=== PATIENT | female | born 1955 | race Caucasian/White ===

== ENCOUNTER → 2016-12-31 | Day surgery (SDC) | payer MEDICARE, MEDICAID ==
[~2016-12-31] MED LIST: ACCUMIS XX; ACCUTES19; ALBUAER3 INH; AMLO5 PO; ASAC800T PO; ASPI1TAB69 PO; ATOR40TA16 PO; BLOOD GLUCOSE T1 TES; BROMSYP PO; BUPR1TAB29 PO; DICY10CA12 PO; EFFE150C PO; ERGO1CAP30 PO; FLUT50SP EACH NARE; FLUTI220I INH; FURO20TA PO; GABA300C5 PO; GLUCOMETER XX; GLUCTES12; HUMALOG SQ; INSULINSYR2 XX; IPRA0.03 EACH NARE; LACTATED RINGER'S 1,000 ML BAG IV ONE; LANCETS1 MI1; LEVEMIR SQ; LISI40TA PO; MAGN400C PO; MAGN400T2 PO; METF1000 PO; MOBI15TA PO; PROPOFOL 100 MG/10 ML INJ IV ONE; PROT40TA PO; RANI300C PO; TOPA100T11 PO; TOPA50TA7 PO; Z.0.LANCETS XX
--- NOTE | 2016-12-31 15:29 | GIPROC ---
[facility] [address] [facility], [address] EGD PROCEDURE REPORT EXAM DATE: 12/31/2016 PATIENT NAME: Marivel Lion MR #: [id number] BIRTHDATE: 1955 ATTENDING: Khari Ni MD ORDER #: [id number] CREW SCHEDULER: Anna Woodard RN STATUS: outpatient INDICATIONS: The patient is a 61 yr old female here for an EGD due to dysphagia PROCEDURE PERFORMED: EGD w/ biopsy MEDICATIONS: None and Per Anesthesia. TOPICAL ANESTHETIC: CONSENT: The patient understands the risks and benefits of the procedure and understands that these risks include, but are not limited to: sedation, allergic reaction, infection, perforation and/or bleeding. Alternative means of evaluation and treatment include, among others: physical exam, x-rays, and/or surgical intervention. The patient elects to proceed with this endoscopic procedure. medical equipment was checked for proper function. Hand hygiene and appropriate measures for infection prevention was taken. After the risks, benefits and alternatives of the procedure were thoroughly explained, Informed consent was verified, confirmed and timeout was successfully executed by the treatment team. The patient was anesthetized with topical anesthesia and the EC-3490Li ([id number]) endoscope was introduced through the mouth and advanced to the second portion of the duodenum. Retroflexed views revealed no abnormalities The gastroscope was then slowly withdrawn and removed. ESOPHAGUS: The mucosa of the esophagus appeared normal. Multiple biopsies were performed. The endoscopy was otherwise normal. STOMACH: There was mild gastritis in the gastric antrum. Multiple biopsies were performed. ADVERSE EVENTS: There were no complications. IMPRESSIONS: 1. The esophagus appeared normal; multiple biopsies were performed 2. Normal endoscopy otherwise 3. There was mild gastritis in the gastric antrum; multiple biopsies were performed 4. Retroflexed views revealed no abnormalities RECOMMENDATIONS: 1. Await biopsy results. Biopsy results will not be ready for 7-10 days. If you don't hear from us in two weeks, call our office for biopsy results. 2. Follow-up: GI clinic 4 week(s) PATIENT CONDITION: stable DISPOSITION: Home REPEAT EXAM: Khari Ni MD eSigned: Khari Ni MD 12/31/2016 3:28 PM cc: Ruperto Henriquez
--- NOTE | 2016-12-31 15:32 | GIPROC ---
[facility] [address] [facility] [place], [address] COLONOSCOPY PROCEDURE REPORT EXAM DATE: 12/31/2016 PATIENT NAME: Marivel Lion MR #: [id number] BIRTHDATE: 1955 ENDOSCOPIST: Khari Ni MD ORDER #: [id number] SALES/MARKETING: Anna Woodard RN STATUS: outpatient INDICATIONS: The patient is a 61 yr old female here for a colonoscopy due to anemia, non-specific PROCEDURE PERFORMED: Colonoscopy with biopsy MEDICATIONS: None and Per Anesthesia. PREP QUALITY: good ESTIMATED BLOOD LOSS: None CONSENT: The patient understands the risks and benefits of the procedure and understands that these risks include, but are not limited to: sedation, allergic reaction, infection, perforation and/or bleeding. Alternative means of evaluation and treatment include, among others: physical exam, x-rays, and/or surgical intervention. The patient elects to proceed with this endoscopic procedure. medical equipment was checked for proper function. Hand hygiene and appropriate measures for infection prevention was taken. After the risks, benefits and alternatives of the procedure were thoroughly explained, Informed consent was verified, confirmed and timeout was successfully executed by the treatment team. A digital exam revealed no abnormalities of the rectum The EC-[id number] ([id number]) endoscope was introduced through the anus and advanced to the cecum, which was identified by both the appendix and ileocecal valve. The instrument was then slowly withdrawn as the colon was fully examined. 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 Multiple biopsies were performed. Mild diverticulosis was noted in the descending colon and sigmoid colon. The colon mucosa was otherwise normal. Retroflexed views revealed no abnormalities The scope was then completely withdrawn from the patient and the procedure terminated. PROCEDURE WITHDRAWAL TIME:11.2minutes ADVERSE EVENTS: There were no complications. IMPRESSIONS: 1. 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 Mild diverticulosis was noted in the descending colon and sigmoid colon 3. The colon mucosa was otherwise normal 4. Retroflexed views revealed no abnormalities 5. Revealed no abnormalities of the rectum RECOMMENDATIONS: 1. Await biopsy results. Biopsy results will not be ready for 7-10 days. If you don't hear from us in two weeks, call our office for results. 2. High fiber diet 3. Yearly hemoccult 4. Follow-up: GI Clinic PRN RECALL: Return 10 years Colonoscopy Khari Ni MD eSigned: Khari Ni MD 12/31/2016 3:32 PM cc: PATIENT NAME: Marivel Lion MR#: [id number]
== END | disposition home or self-care (01) ==
LOC: ESDC 12:49
PROVIDERS: ATTEND Internal Medicine Gastroenterology
DX: R13.10 Dysphagia, unspecified (principal); K29.70 Gastritis, unspecified, without bleeding; D64.9 Anemia, unspecified; D17.79 Benign lipomatous neoplasm of other sites; K57.90 Diverticulosis of intestine, part unspecified, without perforation or abscess without bleeding; E11.9 Type 2 diabetes mellitus without complications; Z79.4 Long term (current) use of insulin; Z86.010 Personal history of colon polyps
CPT/HCPCS: 00740; 00810; 43239; 45380; 82948; 88305; 88312; J3010; J7120

== ENCOUNTER → 2017-01-25 | Outpatient (CLI) | payer MEDICARE, MEDICAID ==
[~2017-01-25] MED LIST changes: -LACTATED RINGER'S 1,000 ML BAG IV ONE; -PROPOFOL 100 MG/10 ML INJ IV ONE
[2017-01-25 11:16] LABS: HDL CHOLESTEROL 49.7 MG/DL (40.0-60.0); LDL CHOLESTEROL 77 MG/DL (0-99)
[2017-01-25 12:00] LABS: HEMOGLOBIN A1a 1.2 %; HEMOGLOBIN A1b 2.5 %; HEMOGLOBIN LA1C 2.8 %; HEMOGLOBIN P3 4.5 %
== END ==
LOC: CLAB 10:25
PROVIDERS: ATTEND Family Medicine
DX: E78.5 Hyperlipidemia, unspecified (principal); E11.65 Type 2 diabetes mellitus with hyperglycemia
CPT/HCPCS: 36415; 80061; 83036